=== PATIENT | male | born 1995 | race Caucasian/White ===

== ENCOUNTER 2017-11-03 13:40 | Emergency (ER) | payer MEDICARE, MEDICAID ==
[2017-11-03 13:47] VITALS: PULSE 88
[2017-11-03] MEDS ORDERED: Magnesium Citrate Oral SOL (300 ml) ONE (14:34)
[2017-11-03] MEDS ORDERED: Magnesium Citrate Oral SOL (300 ml) PO ONE (14:41)
--- NOTE | 2017-11-03 14:45 | ED PDOC ---
HPI: Abdomen Time Seen by Provider: 11/03/17 14:15 Chief Complaint (Nursing): Abdominal Pain History Per: Family Onset/Duration Of Symptoms: Days (4) Current Symptoms Are (Timing): Still Present Severity: Mild Associated Symptoms: Vomiting, Constipation Additional Complaint(s): Constipated x 4 days. Passing gas. Seen by PMD and given lactulose, but vomited lactulose. No fever Past Medical History Vital Signs: Last Vital Signs Temp 98.1 F 11/03/17 13:44 Pulse 88 11/03/17 13:44 Resp 16 11/03/17 13:44 BP 122/77 11/03/17 13:44 Pulse Ox 100 11/03/17 13:44 - Medical History Other PMH: Autsim - Family History Family History: States: Unknown Family Hx - Home Medications Home Medications: Ambulatory Orders Medication Instructions Recorded Docusate Sodium [Colace] 100 mg PO HS #10 capsule 11/03/17 - Allergies Allergies/Adverse Reactions: Allergies Allergy/AdvReac Type Severity Reaction Status Date / Time No Known Allergies Allergy Verified 11/03/17 13:44 Review of Systems Constitutional: Negative for: Fever Gastrointestinal: Positive for: Vomiting, Abdominal Pain, Constipation Physical Exam - Physical Exam Appears: Positive for: Non-toxic, No Acute Distress Gastrointestinal/Abdominal: Positive for: Bowel Sounds, Soft. Negative for: Tenderness - ECG O2 Sat by Pulse Oximetry: 100 Medical Decision Making Medical Decision Making: Family declines enema, rectal exam and CT abd a spt would not allow any of above to be done due to his autism Disposition - Clinical Impression Clinical Impression: Constipation - Patient ED Disposition Is Patient to be Admitted: No Counseled Patient/Family Regarding: Diagnosis, Need For Followup, Rx Given - Disposition Referrals: [facility] [Outside] Disposition: Routine/Home Disposition Time: 14:50 Condition: FAIR Prescriptions: Docusate Sodium [Colace] 100 mg PO HS #10 capsule Instructions: Constipation in Adults
[2017-11-03 15:35] VITALS: BP 120/70; RESP 20; TEMP 98; O2SAT 98
== END 2017-11-03 15:33 | disposition home or self-care (01) ==
LOC: H.ER 13:40
DX: K59.00 Constipation, unspecified (principal)